=== PATIENT | male | born 1955 | race Caucasian/White ===

== ENCOUNTER 2018-09-07 23:08 | Emergency (ER) | payer BC ==
[~2018-09-07] VITALS: Ht 167.6 cm; Wt 74.8 kg
[2018-09-07] MEDS ORDERED: ATORVASTATIN 20 MG TABLET (23:19)
[2018-09-07] MEDS ORDERED: FINASTERIDE 5 MG TABLET (23:19)
[2018-09-07] MEDS ORDERED: METFORMIN HCL 1,000 MG TABLET (23:19)
[2018-09-07] MEDS ORDERED: JANUVIA 100 MG TABLET (23:19)
[2018-09-07] MEDS ORDERED: EZET10TA13 PO (23:20)
[2018-09-07] MEDS ORDERED: ASPI81TA31 PO (23:20)
[2018-09-07] MEDS ORDERED: LISI-607 PO (23:20)
--- NOTE | 2018-09-07 23:35 | NUR ---
Pt ambulated in ER with stable gait with the c/o abdominal pain radiating to the tip of his penis since 1800 today. Pt denies CP, SOB,N/V/D. Safe environment implemented.
[2018-09-07] MEDS ORDERED: MORPHINE SULFATE 4 MG/1 ML DISP.SYRIN IV ONE (23:45)
[2018-09-08] MEDS ORDERED: MORPHINE SULFATE 4 MG/1 ML DISP.SYRIN ONE
[2018-09-08 00:03] LABS: *BILIRUBIN,URIN NEGATIVE (NEGATIVE); *BLOOD, URINE 2+ (NEGATIVE); *CLARITY,URINE CLEAR (CLEAR); *COLOR,URINE YELLOW (YELLOW); *KETONES,URINE 1+ (NEGATIVE); *UROBILINOGEN,URINE 0.2 E.U./dl (NORMAL); LEUKOCYTE ESTERASE ,URINE NEGATIVE (NEGATIVE); NITRITE, URINE NEGATIVE (NEGATIVE); UGLUCOSE NEGATIVE (NEGATIVE)
[2018-09-08 00:05] LABS: BASOPHILS % (AUTO) 0.4 % (0.0-2.0); EOSINOPHILS # (AUTO) 0.2 K/uL (0.0-0.7); EOSINOPHILS % (AUTO) 2.1 % (0.0-7.0); HEMATOCRIT 40.9 % (36.7-47.1); HEMOGLOBIN 13.8 g/dL (12.5-16.3); LYMPHOCYTES # (AUTO) 1.8 K/uL (20.0-40.0); LYMPHOCYTES % (AUTO) 16.4 % (20.5-51.5); MEAN CORPUSCULAR HEMOGLOBIN 28.8 uug (23.8-33.4); MEAN CORPUSCULAR HGB CONC 34 g/dL (32.5-36.3); MEAN CORPUSCULAR VOLUME 85.4 fL (73.0-96.2); MONOCYTES # (AUTO) 0.7 K/uL (2.0-10.0); MONOCYTES % (AUTO) 6.2 % (0.0-11.0); NEUTROPHILS # (AUTO) 8.3 K/uL (1.8-8.9); NEUTROPHILS % (AUTO) 74.9 % (38.5-71.5); PLATELET COUNT (AUTO) 302 K/uL (152-348); RED BLOOD CELL COUNT(AUTO) 4.79 MIL/uL (4.06-5.63)
[2018-09-08 00:10] LABS: BACTERIA,URINE NONE SEEN /HPF (NONE SEEN); SQUAMOUS EPITHELIAL CELL,UR NONE SEEN /HPF (NONE SEEN); WBC,URINE 0-3 /HPF (0-3)
[2018-09-08 00:27] LABS: BILIRUBIN,DIRECT 0.1 mg/dL (0.0-0.2); BILIRUBIN,TOTAL 0.3 mg/dL (0.2-1.0); CREATININE 1.2 mg/dL (0.6-1.3); POTASSIUM 4.1 mmol/L (3.5-5.1); TOTAL PROTEIN, SERUM 7.1 g/dL (6.4-8.2)
[2018-09-08] MEDS ORDERED: IV NORMAL SALINE 1000 ML BAG IV ONE (00:30)
--- NOTE | 2018-09-08 00:30 | NUR ---
Pt back in ER from CT scan.
--- NOTE | 2018-09-08 01:44 | NUR ---
Dr. Sahu on phone with Dr. Phan.
[2018-09-08] MEDS ORDERED: KETOROLAC TROMETHAMINE 15 MG INJ IVP ONE (01:45)
[2018-09-08] MEDS ORDERED: CEFTRIAXONE 1 G in IV DEXTROSE 5% 50 ML IV ONE (01:45)
[2018-09-08] MEDS ORDERED: CEFTRIAXONE 1 G VIAL ONE (01:52)
[2018-09-08] MEDS ORDERED: KETOROLAC TROMETHAMINE 30 MG INJ ONE (01:52)
--- NOTE | 2018-09-08 02:43 | NUR ---
IV removed. Catheter intact and site benign. Pressure and 4x4 gauze applied to site. No bleeding noted.
--- NOTE | 2018-09-08 02:47 | NUR ---
Patient discharged to home in stable conditon. Written and verbal after care instructions given. Patient verbalizes understanding of instructions. Patient ambulated out of ER with stable gait. Patient instructed not to drive. Per patient, he will wait for brother to pick him up.
[2018-09-08 02:49] VITALS: BP 134/74
== END 2018-09-08 02:50 | disposition home or self-care (01) ==
LOC: ER 23:10
DX: N20.0 Calculus of kidney (principal); K21.9 Gastro-esophageal reflux disease without esophagitis; E11.9 Type 2 diabetes mellitus without complications; Z88.8 Allergy status to other drugs, medicaments and biological substances; Z79.82 Long term (current) use of aspirin; Z79.899 Other long term (current) drug therapy
CPT/HCPCS: 36415; 74150; 80048; 80076; 81001; 83690; 85025; 96365; 96375; 99284; J0696; J1885; J2270; J7060; 93005; A4663; J7040